=== PATIENT | female | born 1965 | race Caucasian/White ===

== ENCOUNTER 2018-07-12 12:16 | Emergency (ER) | payer SELFPAY ==
[~2018-07-12] VITALS: Ht 175.3 cm; Wt 64.8 kg
[2018-07-12 12:21] VITALS: BP 138/84
== END 2018-07-12 13:20 | disposition home or self-care (01) ==
LOC: ER 12:16
DX: B02.9 Zoster without complications (principal); R03.0 Elevated blood-pressure reading, without diagnosis of hypertension
CPT/HCPCS: 99283